=== PATIENT | female | born 1960 | race Asian ===

== ENCOUNTER 2018-08-25 10:00 | Day surgery (SDC) | payer BC ==
[2018-08-25] MEDS ORDERED: MIDAZOLAM 1 MG/ML 2 ML INJ ×4 (13:22→13:23)
[2018-08-25] MEDS ORDERED: FENTAnyl 50 MCG/ML VIAL (13:22)
== END 2018-08-25 15:42 | disposition home or self-care (01) ==
LOC: GIL 10:00
DX: Z12.11 Encounter for screening for malignant neoplasm of colon (principal); D12.3 Benign neoplasm of transverse colon; K44.9 Diaphragmatic hernia without obstruction or gangrene; K21.9 Gastro-esophageal reflux disease without esophagitis; K29.60 Other gastritis without bleeding; K64.8 Other hemorrhoids; I10 Essential (primary) hypertension
CPT/HCPCS: 43239; 88305